=== PATIENT | female | born 1985 | race Caucasian/White ===

== ENCOUNTER 2021-02-22 09:42 | Emergency (ER) | payer BC ==
[~2021-02-22] VITALS: Ht 157.5 cm; Wt 79.4 kg
[2021-02-22 09:51] VITALS: BP_SYST 140
[2021-02-22] MEDS ORDERED: predniSONE 20 MG TABLET PO ONE (10:00)
[2021-02-22] MEDS ORDERED: IPRATROPIUM BROM 0.5 MG/2.5 ML VIAL.NEB (ATROVENT) INH ONE (10:00)
[2021-02-22] MEDS ORDERED: ALBUTEROL SULFATE 0.083% 2.5 MG/3 ML VIAL.NEB INH ONE (10:00)
[2021-02-22] MEDS ORDERED: PRED20TA PO (10:32)
[2021-02-22 10:51] VITALS: BP_SYST 140
== END 2021-02-22 10:51 | disposition home or self-care (01) ==
LOC: SED 09:42
DX: J30.9 Allergic rhinitis, unspecified (principal); R06.02 Shortness of breath; Z88.8 Allergy status to other drugs, medicaments and biological substances
CPT/HCPCS: 99283; J7613